=== PATIENT | male | born 1990 | race Two or more races ===

== ENCOUNTER 2023-07-29 03:22 | Inpatient (IN) | payer OTHER ==
[~2023-07-29] VITALS: Ht 165.1 cm; Wt 74.8 kg
[2023-07-29] MEDS ORDERED: FLUMAZENIL 0.5 MG/5ML ML IV STA (03:45)
[2023-07-29] MEDS ORDERED: NALOXONE HCL 0.4 MG/ML AMPUL IV STA (03:45)
[2023-07-29] MEDS ORDERED: RINGERS SOLUTION,LACTATED 1,000 ML IV STA (03:45)
[2023-07-29] MEDS ORDERED: LORazepam 2 MG/ML VIAL IV PUSH STA (03:46)
[2023-07-29] MEDS ORDERED: PROPOFOL 10 MG/1 ML VIAL 50ML IV STA (04:04)
[2023-07-29 04:35] LABS: ABG PO2 220.8 mmHg (80-100); ABG pCO2 32.2 mmHg (35-45); BASE EXCESS -28.9 mmol/l; SaO2 98.1 %
[2023-07-29 04:36] LABS: BICARBONATE 5.1 mmol/l (23-25); Tco2 6.1 mmol/l; allen test SATISFACTORY; o2 100 %; puncture site RADIAL LEFT
[2023-07-29] MEDS ORDERED: MIDAZOLAM HCL 2 MG/2 ML VIAL IV PUSH STA (04:45)
[2023-07-29] MEDS ORDERED: PROPOFOL 100 ML IV SCH (04:45)
[2023-07-29] MEDS ORDERED: LevETIRAcetam 500 MG/5 ML VIAL IV STA (05:03)
[2023-07-29] MEDS ORDERED: SODIUM BICARBONATE 1 MEQ/ML DISP.SYRIN 50ML IV STA (05:04)
[2023-07-29 05:16] LABS: HEMATOCRIT 45.7 % (39.0-48.0); HEMOGLOBIN 14.3 g/dL (13-16.00); MEAN CELL VOLUME 106.2 fL (80.0-100.00); MEAN CORPUSCULAR HEMOGLOBIN 33.3 pg (27.00-32.0); MEAN CORPUSCULAR HGB CONC 31.3 g/dl (32.0-36.0); PLATELET COUNT 324 K/uL (150-450); RED CELL DISTRIBUTION WIDTH 13.6 % (11.5-14.5)
[2023-07-29 05:24] LABS: URINE APPEARANCE Clear; URINE BILIRRUBIN Negative (NEGATIVE); URINE BLOOD Small; URINE COLOR Yellow; URINE GLUCOSE Negative (NEGATIVE); URINE LEUKOCYTE Negative; URINE NITRATE Negative
[2023-07-29 05:27] LABS: URINE BACTERIA 98.2 uL (0.0-1933); URINE EPITHELIAL CELLS 1.6 uL (0.0-38.8); URINE WBC 5.2 uL (0.0-23.2)
[2023-07-29 05:40] LABS: PARTIAL THROMBOPLASTIN TIME 37.9 SECONDS (22.0-34.0); PROTHROMBIN TIME 10.5 SECONDS (9.0-11.5)
[2023-07-29 05:44] LABS: ALBUMIN 4.6 gm/dL (3.4-5.0); BILIRUBIN TOTAL 0.41 mg/dL (0.3-1.2); CALCIUM 11.8 mg/dL (8.5-10.1); CREATININE SERUM 1.36 mg/dL (0.70-1.30); GFR 61.12; GLOBULINA 4.3 G/DL (2.4-3.5); TOTAL PROTEIN 8.9 gm/dL (6.4-8.2)
[2023-07-29] MEDS ORDERED: MIDAZOLAM HCL IV SCH (05:45)
[2023-07-29] MEDS ORDERED: MIDAZOLAM HCL 50 MG in 0.9 % SODIUM CHLORIDE 50 ML IV SCH (05:45)
[2023-07-29 05:50] LABS: POTASSIUM 3.94 mEq/L (3.5-5.1)
[2023-07-29] MEDS ORDERED: GENTAMICIN SULFATE 40 MG/ML VIAL IV STA (05:59)
[2023-07-29] MEDS ORDERED: PIPERACILLIN/TAZOBACTAM SODIUM 3.375 GM VIAL IV STA (05:59)
[2023-07-29 06:05] LABS: ABG PH 7.387 (7.35-7.45); ABG PO2 450.4 mmHg (80-100); ABG pCO2 36.7 mmHg (35-45); BASE EXCESS -2.9 mmol/l; BICARBONATE 21.6 mmol/l (23-25); Tco2 22.7 mmol/l
[2023-07-29 06:06] LABS: allen test SATISFACTORY; o2 100 %; puncture site RADIAL LEFT
[2023-07-29 06:15] LABS: URINE CRYSTALS FEW /HPF; URINE PROTEIN 100 (NEGATIVE); URINE RBC 1.7 uL (0.0-20.8)
[2023-07-29 06:28] LABS: COCAINE NEGATIVE (NEGATIVE); METHADONE NEGATIVE (NEGATIVE); OPIATES NEGATIVE (NEGATIVE); THC ( Cannabinoids) POSITIVE (NEGATIVE)
[2023-07-29] MEDS ORDERED: FentaNYL CITRATE/PF 1,000 MCG in 0.9 % SODIUM CHLORIDE 100 ML IV SCH (07:30)
[2023-07-29] MEDS ORDERED: MIDAZOLAM HCL 100 MG in 0.9 % SODIUM CHLORIDE 100 ML IV SCH (08:30)
[2023-07-29] MEDS ORDERED: FAMOTIDINE/PF 20 MG/10 ML SYRINGE IV PUSH SCH (11:06)
[2023-07-29] MEDS ORDERED: CHLORHEXIDINE GLUCONATE 15ML BRUSH KIT MM SCH (11:07)
[2023-07-29] MEDS ORDERED: POLYVINYL ALCOHOL 15 ML DROPS OP SCH (11:07)
[2023-07-29] MEDS ORDERED: 0.9 % SODIUM CHLORIDE 1,000 ML IV SCH (17:45)
[2023-07-29] MEDS ORDERED: LORazepam 2 MG/ML VIAL IV PUSH PRN (18:00)
[2023-07-29] MEDS ORDERED: PIPERACILLIN/TAZOBACTAM SODIUM 3.375 GM in DEXTROSE 5 % IN WATER 100 ML IV SCH (18:00)
[2023-07-29] MEDS ORDERED: ONDANSETRON HCL 4 MG in DEXTROSE 5 % IN WATER 50 ML IV PRN (18:00)
[2023-07-29] MEDS ORDERED: DEXTROSE 5 % AND 0.9 % NACL 1,000 ML IV SCH (18:45)
[2023-07-29] MEDS ORDERED: LevETIRAcetam 500 MG/5 ML VIAL IV SCH (21:00)
[2023-07-29] MEDS ORDERED: VANCOMYCIN HCL 1,000 MG VIAL IV SCH (21:00)
[2023-07-30] MEDS ORDERED: LEVALBUTEROL HCL 0.63 MG/3 ML SOLUTION IH SCH (01:00)
[2023-07-30 07:06] LABS: INR 1.01; PARTIAL THROMBOPLASTIN TIME 28.9 SECONDS (22.0-34.0); PROTHROMBIN TIME 10.6 SECONDS (9.0-11.5)
[2023-07-30 07:23] LABS: ALBUMIN 3.1 gm/dL (3.4-5.0); BILIRUBIN TOTAL 0.62 mg/dL (0.3-1.2); CALCIUM 7.8 mg/dL (8.5-10.1); CREATININE SERUM 2.18 mg/dL (0.70-1.30); GFR 35.46; GLOBULINA 3.2 G/DL (2.4-3.5); PHOSPHOROUS 3.3 mg/dL (2.5-4.9); POTASSIUM 3.27 mEq/L (3.5-5.1); TOTAL PROTEIN 6.3 gm/dL (6.4-8.2)
[2023-07-30 07:35] LABS: TSH 0.263 uIU/mL (0.358-3.74)
[2023-07-30 08:09] LABS: HEMATOCRIT 38.6 % (39.0-48.0); HEMOGLOBIN 13.1 g/dL (13-16.00); MEAN CELL VOLUME 93.6 fL (80.0-100.00); MEAN CORPUSCULAR HEMOGLOBIN 31.8 pg (27.00-32.0); PLATELET COUNT 175 K/uL (150-450); RED BLOOD COUNT 4.13 M/uL (4.00-6.00); RED CELL DISTRIBUTION WIDTH 12.8 % (11.5-14.5)
[2023-07-30 08:41] LABS: ALBUMIN 3.2 gm/dL (3.4-5.0); BILIRUBIN TOTAL 0.64 mg/dL (0.3-1.2); CALCIUM 8.6 mg/dL (8.5-10.1); CREATININE SERUM 2.15 mg/dL (0.70-1.30); GFR 36.03; GLOBULINA 3.4 G/DL (2.4-3.5); POTASSIUM 3.47 mEq/L (3.5-5.1); TOTAL PROTEIN 6.6 gm/dL (6.4-8.2)
[2023-07-30] MEDS ORDERED: ENOXAPARIN SODIUM 40 MG/0.4 ML SYRINGE SUBCUTANEO SCH (09:25)
[2023-07-30] MEDS ORDERED: POTASSIUM CHLORIDE 20MEQ/100ML H2O PB IV ONE (09:32)
[2023-07-30] MEDS ORDERED: SODIUM CHLORIDE 0.45 % 1,000 ML IV SCH (09:45)
[2023-07-30 10:29] LABS: ABG PH 7.344 (7.35-7.45); ABG PO2 225.5 mmHg (80-100); ABG pCO2 43.8 mmHg (35-45); BASE EXCESS -2.5 mmol/l; BICARBONATE 23.3 mmol/l (23-25); SaO2 99.7 %; Tco2 24.6 mmol/l; allen test SATISFACTORY; o2 40 %; puncture site RADIAL LEFT
[2023-07-30 14:47] LABS: ABG PH 7.355 (7.35-7.45); ABG PO2 80.3 mmHg (80-100); ABG pCO2 39.1 mmHg (35-45)
[2023-07-30 14:48] LABS: BASE EXCESS -3.8 mmol/l; BICARBONATE 21.3 mmol/l (23-25); Tco2 22.5 mmol/l; allen test SATISFACTORY; o2 21 %; puncture site RADIAL LEFT
[2023-07-31 09:30] LABS: CALCIUM 8.6 mg/dL (8.5-10.1); CREATININE SERUM 1.98 mg/dL (0.70-1.30); GFR 39.62; POTASSIUM 4.13 mEq/L (3.5-5.1)
[2023-08-01 06:29] LABS: HEMATOCRIT 24.3 % (39.0-48.0); MEAN CELL VOLUME 92.3 fL (80.0-100.00); MEAN CORPUSCULAR HEMOGLOBIN 32.5 pg (27.00-32.0); MEAN CORPUSCULAR HGB CONC 35.2 g/dl (32.0-36.0); PLATELET COUNT 174 K/uL (150-450); RED BLOOD COUNT 2.64 M/uL (4.00-6.00); RED CELL DISTRIBUTION WIDTH 12.3 % (11.5-14.5)
[2023-08-01 06:31] LABS: HEMOGLOBIN 8.6 g/dL (13-16.00)
[2023-08-01 07:01] LABS: CALCIUM 8.5 mg/dL (8.5-10.1); CREATININE SERUM 1.58 mg/dL (0.70-1.30); GFR 51.41; POTASSIUM 3.52 mEq/L (3.5-5.1)
[2023-08-01 08:28] LABS: HEMATOCRIT 24.6 % (39.0-48.0); MEAN CELL VOLUME 92.7 fL (80.0-100.00); MEAN CORPUSCULAR HGB CONC 35.9 g/dl (32.0-36.0); PLATELET COUNT 184 K/uL (150-450); RED BLOOD COUNT 2.65 M/uL (4.00-6.00); RED CELL DISTRIBUTION WIDTH 11.9 % (11.5-14.5)
[2023-08-01 08:30] LABS: HEMOGLOBIN 8.8 g/dL (13-16.00); MEAN CORPUSCULAR HEMOGLOBIN 33.2 pg (27.00-32.0)
[2023-08-02 07:57] LABS: CALCIUM 8.7 mg/dL (8.5-10.1); CREATININE SERUM 1.19 mg/dL (0.70-1.30); GFR 71.3; POTASSIUM 3.85 mEq/L (3.5-5.1)
[2023-08-03] MEDS ORDERED: KEPPRA500 MG PO (11:11)
== END 2023-08-03 13:47 | disposition home or self-care (01) | DRG 100 ==
LOC: ER 03:22 → EDBD 04:00 → ICU-2 18:13 → MEDJ 18:13
PROVIDERS: Internal Medicine; ADMIT Internal Medicine; ATTEND Internal Medicine
PROC: 0BH17EZ Insertion of Endotracheal Airway into Trachea, Via Natural or Artificial Opening (ICD-10-PCS; principal; 2023-07-29)
PROC: 5A1935Z Respiratory Ventilation, Less than 24 Consecutive Hours (ICD-10-PCS; 2023-07-29)
PROC: BW28ZZZ Computerized Tomography (CT Scan) of Head (ICD-10-PCS; 2023-07-29)
PROC: BW24ZZZ Computerized Tomography (CT Scan) of Chest and Abdomen (ICD-10-PCS; 2023-07-29)
PROC: BW20ZZZ Computerized Tomography (CT Scan) of Abdomen (ICD-10-PCS; 2023-07-29)
PROC: B030ZZZ Magnetic Resonance Imaging (MRI) of Brain (ICD-10-PCS; 2023-07-29)
DX: G40.801 Other epilepsy, not intractable, with status epilepticus (principal); J96.00 Acute respiratory failure, unspecified whether with hypoxia or hypercapnia; N17.9 Acute kidney failure, unspecified
CPT/HCPCS: 70551